=== PATIENT | male | born 1940 | race Caucasian/White ===

== ENCOUNTER 2017-07-27 11:16 | Inpatient (IN) | payer MEDICARE, OTHER ==
[~2017-07-27] VITALS: Ht 172.7 cm; Wt 89.6 kg
[~2017-07-27 11:16] MED LIST: ASPI-1264 PO; CLOP75TA35 PO; FENO48TA15 PO; MOME13HF2 IH; MONT10TA21 PO; OMEG300C2 PO; PRAV10TA38 PO
[2017-07-27 11:54] LABS: BASOPHILS # (AUTO) 0.1 X10'3 (0-0.2); BASOPHILS % (AUTO) 1.1 % (0-1); EOSINOPHILS # (AUTO) 0.3 X10'3 (0-0.9); EOSINOPHILS % (AUTO) 4.3 % (0-6); HEMATOCRIT 44.3 % (42.0-52.0); HEMOGLOBIN 15.2 g/dl (14.0-17.9); LYMPHOCYTES # (AUTO) 1.9 X10'3 (1.1-4.8); LYMPHOCYTES % (AUTO) 30.6 % (21-51); MEAN CORPUSCULAR HEMOGLOBIN 31.2 PG (27.0-31.0); MEAN CORPUSCULAR HGB CONC 34.4 % (33.0-36.5); MEAN CORPUSCULAR VOLUME 90.7 FL (78-98); MEAN PLATELET VOLUME 7.4 FL (7.4-10.4); MONOCYTES # (AUTO) 0.6 X10'3 (0-0.9); MONOCYTES % (AUTO) 9.3 % (2-12); NEUTROPHILS # (AUTO) 3.4 X10'3 (1.8-7.7); NEUTROPHILS % (AUTO) 54.7 % (42-75); PLATELET COUNT 284 X10'3 (140-440); RED BLOOD COUNT 4.89 X10'6 (4.70-6.10); RED CELL DISTRIBUTION WIDTH 13.2 % (11.5-14.5); WHITE BLOOD COUNT 6.2 X10'3 (4.5-11.0)
[2017-07-27 12:05] LABS: PARTIAL THROMBOPLASTIN TIME 27 SECONDS (22-32); PROTHROMBIN TIME 10.8 SECONDS (9.0-12.0)
[2017-07-27 12:09] LABS: ALANINE AMINOTRANSFERASE 33 U/L (12-78); ALBUMIN 3.9 G/DL (3.4-5.0); ALBUMIN/GLOBULIN RATIO 1.1 (1.1-1.5); ANION GAP 8 (8-16); ASPARTATE AMINO TRANSFERASE 20 U/L (10-37); BILIRUBIN,TOTAL 0.7 MG/DL (0.1-1.0); BLOOD UREA NITROGEN 17 MG/DL (7-18); BUN/CREATININE RATIO 12.1 (5.4-32.0); CALCIUM 9.1 MG/DL (8.5-10.1); CHLORIDE 107 MMOL/L (99-107); GLUCOSE 136 MG/DL (70-104); POTASSIUM 3.5 MMOL/L (3.5-5.1); SODIUM 143 MMOL/L (135-145); TOTAL CARBON DIOXIDE 27.8 MMOL/L (24-32); TOTAL PROTEIN 7.4 G/DL (6.4-8.2); eGFR 49 ML/MIN
[2017-07-27 12:10] LABS: ALKALINE PHOSPHATASE 76 IU/L (46-116)
[2017-07-27] MEDS ORDERED: aspirin 81mg tab.chew PO ONE (12:30)
[2017-07-27] MEDS: nitroGLYCERIN 0.4mg SUBLingual tab SL PRN ×3 (13:47→14:04)
[2017-07-27] MEDS ORDERED: ondansetron/PF 4mg/2ml inj IV PRN ×2 (13:50)
[2017-07-27] MEDS ORDERED: metoprolol tartrate 50mg tablet PO ONE (13:50)
[2017-07-27] MEDS ORDERED: acetaminophen 325mg tablet PO PRN ×2 (13:50)
[2017-07-27] MEDS ORDERED: magnesium hydroxide 30ml (MOM) UD suspension PO PRN ×2 (13:50)
[2017-07-27] MEDS ORDERED: lisinopril 10 MG tablet PO ONE (13:50)
[2017-07-27] MEDS ORDERED: hydrALAZINE 20mg/ml inj. IV ONE (13:50)
[2017-07-27] MEDS ORDERED: nitroGLYCERIN 0.4mg SUBLingual tab SL PRN (13:50)
[2017-07-27] MEDS ORDERED: aspirin 325mg tablet PO ONE (13:50)
[2017-07-27] MEDS ORDERED: mag hydrox/Alum hydrox/simeth 30ml oral suspension PO PRN ×2 (13:50)
[2017-07-27] MEDS ORDERED: heparin 10,000 units/1 ML INJ IV PRN ×2 (13:50)
[2017-07-27] MEDS ORDERED: heparin 10,000 units/1 ML INJ IV ONE ×2 (13:50)
[2017-07-27 14:53] LABS: BASOPHILS % (AUTO) 0.6 % (0-1); EOSINOPHILS # (AUTO) 0.1 X10'3 (0-0.9); EOSINOPHILS % (AUTO) 1.5 % (0-6); HEMATOCRIT 41.4 % (42.0-52.0); HEMOGLOBIN 14.2 g/dl (14.0-17.9); LYMPHOCYTES # (AUTO) 1.3 X10'3 (1.1-4.8); LYMPHOCYTES % (AUTO) 16.5 % (21-51); MEAN CORPUSCULAR HEMOGLOBIN 31.5 PG (27.0-31.0); MEAN CORPUSCULAR HGB CONC 34.4 % (33.0-36.5); MEAN CORPUSCULAR VOLUME 91.5 FL (78-98); MEAN PLATELET VOLUME 7.4 FL (7.4-10.4); MONOCYTES # (AUTO) 0.5 X10'3 (0-0.9); MONOCYTES % (AUTO) 6.6 % (2-12); NEUTROPHILS # (AUTO) 5.9 X10'3 (1.8-7.7); NEUTROPHILS % (AUTO) 74.8 % (42-75); PLATELET COUNT 284 X10'3 (140-440); RED BLOOD COUNT 4.53 X10'6 (4.70-6.10); RED CELL DISTRIBUTION WIDTH 13.3 % (11.5-14.5); WHITE BLOOD COUNT 7.9 X10'3 (4.5-11.0)
[2017-07-27 15:04] LABS: PARTIAL THROMBOPLASTIN TIME 26 SECONDS (22-32); PROTHROMBIN TIME 10.8 SECONDS (9.0-12.0)
[2017-07-27] MEDS: sodium bicarbonate (8.4%) inj. 150 MEQ in sodium chloride 0.45% 1,000 ML IV SCH (15:35)
[2017-07-27] MEDS ORDERED: nitroGLYCERIN-Tridil 50MG/D5W 250 ML IV SCH (16:05)
[2017-07-27] MEDS: tirofiban 5mg in NS 100mL 100 ML IV SCH ×2 (16:14→22:10)
[2017-07-27] MEDS ORDERED: nitroGLYCERIN-Tridil 50MG/D5W 250 ML IV PRN (17:20)
[2017-07-27 19:45] VITALS: BP 164/97
[2017-07-27] MEDS ORDERED: non-formulary drug (Mometasone/Formoterol (Dulera 100 Mcg/5 Mcg Inhaler) 2 PUFFS) IH SCH (20:00)
[2017-07-27] MEDS: OMEGA-3/DHA/EPA/FISH OIL 1 EACH CAPSULE.DR PO SCH (20:00)
[2017-07-27] MEDS: fenofibrate 48mg tablet PO SCH (20:41)
[2017-07-27] MEDS: metoprolol tartrate 25mg tablet PO SCH (20:42)
[2017-07-27 21:00] VITALS: BP 162/93
[2017-07-27] MEDS ORDERED: clopidogrel 75mg tablet PO SCH (21:00)
[2017-07-27 22:00] VITALS: BP 148/94
[2017-07-27 23:00] VITALS: BP 110/91
[2017-07-28] VITALS (20 sets, daily range): BP systolic 86–137; BP diastolic 36–76
[2017-07-28] MEDS: sodium bicarbonate (8.4%) inj. 150 MEQ in sodium chloride 0.45% 1,000 ML IV SCH (05:42)
[2017-07-28 06:35] LABS: BASOPHILS # (AUTO) 0.1 X10'3 (0-0.2); BASOPHILS % (AUTO) 1.1 % (0-1); EOSINOPHILS # (AUTO) 0.4 X10'3 (0-0.9); EOSINOPHILS % (AUTO) 5.1 % (0-6); HEMATOCRIT 39.2 % (42.0-52.0); HEMOGLOBIN 13.6 g/dl (14.0-17.9); LYMPHOCYTES # (AUTO) 2.2 X10'3 (1.1-4.8); LYMPHOCYTES % (AUTO) 26.6 % (21-51); MEAN CORPUSCULAR HEMOGLOBIN 31.6 PG (27.0-31.0); MEAN CORPUSCULAR HGB CONC 34.7 % (33.0-36.5); MEAN CORPUSCULAR VOLUME 90.9 FL (78-98); MEAN PLATELET VOLUME 7.7 FL (7.4-10.4); MONOCYTES # (AUTO) 0.7 X10'3 (0-0.9); NEUTROPHILS # (AUTO) 4.9 X10'3 (1.8-7.7); NEUTROPHILS % (AUTO) 59.2 % (42-75); PLATELET COUNT 272 X10'3 (140-440); RED BLOOD COUNT 4.31 X10'6 (4.70-6.10); WHITE BLOOD COUNT 8.3 X10'3 (4.5-11.0)
[2017-07-28] MEDS: atorvastatin 20mg tablet PO SCH (07:05)
[2017-07-28] MEDS: montelukast 10mg tablet PO SCH (07:06)
[2017-07-28] MEDS: lisinopril 10 MG tablet PO SCH (07:06)
[2017-07-28] MEDS: tirofiban 5mg in NS 100mL 100 ML IV SCH ×3 (07:07→22:30)
[2017-07-28] MEDS: aspirin 325mg tablet PO SCH (07:07)
[2017-07-28 07:11] LABS: ALANINE AMINOTRANSFERASE 31 U/L (12-78); ALBUMIN 3.3 G/DL (3.4-5.0); ALBUMIN/GLOBULIN RATIO 1.1 (1.1-1.5); ALKALINE PHOSPHATASE 62 IU/L (46-116); ANION GAP 7 (8-16); ASPARTATE AMINO TRANSFERASE 73 U/L (10-37); BILIRUBIN,TOTAL 0.5 MG/DL (0.1-1.0); BLOOD UREA NITROGEN 16 MG/DL (7-18); BUN/CREATININE RATIO 14.5 (5.4-32.0); CALCIUM 8.4 MG/DL (8.5-10.1); CHLORIDE 107 MMOL/L (99-107); GLUCOSE 100 MG/DL (70-104); POTASSIUM 3.3 MMOL/L (3.5-5.1); SODIUM 143 MMOL/L (135-145); TOTAL CARBON DIOXIDE 29.4 MMOL/L (24-32); TOTAL PROTEIN 6.3 G/DL (6.4-8.2); eGFR 65 ML/MIN
[2017-07-28] MEDS: OMEGA-3/DHA/EPA/FISH OIL 1 EACH CAPSULE.DR PO SCH ×2 (07:11→21:08)
[2017-07-28] MEDS: metoprolol tartrate 25mg tablet PO SCH ×2 (07:11→20:00)
[2017-07-28] MEDS ORDERED: heparin 1,000unit/ml 10ml vial 10 ML ONE ×2 (09:17→11:55)
[2017-07-28] MEDS ORDERED: LIDOcaine 1%/PF (10mg/ml) 5ml vial ONE (09:17)
[2017-07-28] MEDS ORDERED: iohexol 350MG/ML 100ml bottle IV ONE ×3 (09:17→11:24)
[2017-07-28] MEDS ORDERED: iohexol 350 MG/ML 50ML vial IV ONE (09:17)
[2017-07-28] MEDS ORDERED: nitroGLYCERIN-Tridil 50MG/D5W 250 ML IV ONE (09:18)
[2017-07-28] MEDS ORDERED: LIDOcaine 1% 30ml vial 30 ML ONE ×2 (10:31→11:55)
[2017-07-28] MEDS ORDERED: heparin 1,000 UNITS/NS 500ml 500 ML ONE (10:51)
[2017-07-28] MEDS ORDERED: nitroGLYCERIN 0.4mg SUBLingual tab SL ONE (11:48)
[2017-07-28] MEDS ORDERED: iohexol 350 MG/1 ML 200ml bottle ONE (11:55)
[2017-07-28] MEDS ORDERED: midazolam 2 mg/2 ml injection ONE (11:59)
[2017-07-28] MEDS ORDERED: fentaNYL/PF 50MCG/1 ML 2ML syringe ONE (11:59)
[2017-07-28] MEDS ORDERED: ondansetron/PF 4mg/2ml inj ONE (12:22)
[2017-07-28] MEDS ORDERED: DOPamine 400mg/D5W 250ml 250 ML IV ONE (13:18)
[2017-07-28] MEDS ORDERED: proCHLORperazine 10 MG/2 ml inj ONE (13:41)
[2017-07-28] MEDS ORDERED: ticagrelor 90mg tablet ONE (13:53)
[2017-07-28] MEDS: morphine 2 MG/ML inj. syringe IV PRN ×4 (14:41→23:16)
[2017-07-28 15:36] LABS: CHOL/HDL RATIO 2.3 (0.00-4.99); CHOLESTEROL 93 MG/DL (0-200); CKMB RELATIVE INDEX 12.6 RATIO (0-2.5); CREATINE KINASE 286 U/L (39-308); HDL CHOLESTEROL 40 MG/DL (35-60); LDL CHOLESTEROL 38 MG/DL (50-100); TRIGLYCERIDES 75 MG/DL (20-135)
[2017-07-28] MEDS ORDERED: acetaminophen 325mg tablet PO PRN (15:40)
[2017-07-28] MEDS ORDERED: proCHLORperazine 10 MG/2 ml inj IV PRN (15:40)
[2017-07-28] MEDS ORDERED: magnesium hydroxide 30ml (MOM) UD suspension PO PRN (15:40)
[2017-07-28] MEDS ORDERED: sodium bicarbonate (8.4%) inj. 150 MEQ in sodium chloride 0.45% 1,000 ML IV SCH (15:45)
[2017-07-28] MEDS: cyclobenzaprine 10mg tablet PO PRN (15:54)
[2017-07-28] MEDS: OXAZEpam 15mg capsule PO PRN (15:54)
[2017-07-28] MEDS ORDERED: HYDROmorphone inj. 0.5 MG/0.5 ML DISP.SYRIN IV PRN (16:35)
[2017-07-28] MEDS ORDERED: magnesium 2GM in 50ml NS 50 ML IV PRN (18:40)
[2017-07-28] MEDS ORDERED: potassium Cl 20 mEq SR tablet PO PRN (18:40)
[2017-07-28] MEDS ORDERED: magnesium Cl slow-release 64mg tablet PO PRN (18:40)
[2017-07-28] MEDS ORDERED: magnesium 4gm in 100ml NS 100 ML IV PRN (18:40)
[2017-07-28] MEDS ORDERED: potassium Cl 40MEQ/NS 500ml 500 ML IV PRN ×2 (18:40)
[2017-07-28 18:47] LABS: PARTIAL THROMBOPLASTIN TIME 145 SECONDS (22-32)
[2017-07-28] MEDS ORDERED: DOPamine 400mg/D5W 250ml 250 ML IV PRN (20:26)
[2017-07-28] MEDS ORDERED: HYDROcodone/acetaminophen 10/325mg tab PO PRN (20:30)
[2017-07-28] MEDS: ticagrelor 90mg tablet PO SCH (21:07)
[2017-07-28] MEDS: docusate sod 100mg capsule PO SCH (21:07)
[2017-07-28] MEDS: potassium Cl 20 mEq SR tablet PO PRN (21:07)
[2017-07-28] MEDS: fenofibrate 48mg tablet PO SCH (21:07)
[2017-07-28] MEDS: normal saline 1000ml 1,000 ML IV SCH (22:52)
[2017-07-29] VITALS (22 sets, daily range): BP systolic 94–145; BP diastolic 51–77
[2017-07-29] MEDS: potassium Cl 20 mEq SR tablet PO PRN (01:41)
[2017-07-29] MEDS: cyclobenzaprine 10mg tablet PO PRN (01:41)
[2017-07-29] MEDS: OXAZEpam 15mg capsule PO PRN (01:41)
[2017-07-29] MEDS: tirofiban 5mg in NS 100mL 100 ML IV SCH ×6 (02:00→20:43)
[2017-07-29] MEDS: morphine 2 MG/ML inj. syringe IV PRN ×5 (02:35→22:55)
[2017-07-29 03:14] LABS: BASOPHILS % (AUTO) 0.2 % (0-1); EOSINOPHILS # (AUTO) 0.2 X10'3 (0-0.9); EOSINOPHILS % (AUTO) 1.6 % (0-6); HEMOGLOBIN 9.7 g/dl (14.0-17.9); LYMPHOCYTES % (AUTO) 8.7 % (21-51); MEAN CORPUSCULAR HEMOGLOBIN 31.4 PG (27.0-31.0); MEAN CORPUSCULAR HGB CONC 34.7 % (33.0-36.5); MEAN CORPUSCULAR VOLUME 90.5 FL (78-98); MEAN PLATELET VOLUME 7.4 FL (7.4-10.4); MONOCYTES # (AUTO) 0.8 X10'3 (0-0.9); NEUTROPHILS # (AUTO) 9.2 X10'3 (1.8-7.7); NEUTROPHILS % (AUTO) 82.5 % (42-75); PLATELET COUNT 274 X10'3 (140-440); RED BLOOD COUNT 3.09 X10'6 (4.70-6.10); RED CELL DISTRIBUTION WIDTH 13.5 % (11.5-14.5); WHITE BLOOD COUNT 11.1 X10'3 (4.5-11.0)
[2017-07-29 04:01] LABS: ALANINE AMINOTRANSFERASE 27 U/L (12-78); ALBUMIN 2.9 G/DL (3.4-5.0); ALBUMIN/GLOBULIN RATIO 1.1 (1.1-1.5); ALKALINE PHOSPHATASE 50 IU/L (46-116); ANION GAP 9 (8-16); ASPARTATE AMINO TRANSFERASE 51 U/L (10-37); BILIRUBIN,TOTAL 0.6 MG/DL (0.1-1.0); BLOOD UREA NITROGEN 17 MG/DL (7-18); BUN/CREATININE RATIO 14.2 (5.4-32.0); CALCIUM 7.7 MG/DL (8.5-10.1); CHLORIDE 108 MMOL/L (99-107); GLUCOSE 158 MG/DL (70-104); POTASSIUM 3.6 MMOL/L (3.5-5.1); SODIUM 144 MMOL/L (135-145); TOTAL CARBON DIOXIDE 27.4 MMOL/L (24-32); TOTAL PROTEIN 5.6 G/DL (6.4-8.2); eGFR 59 ML/MIN
[2017-07-29 06:59] LABS: MAGNESIUM 1.7 MG/DL (1.5-2.4)
[2017-07-29] MEDS: metoprolol tartrate 25mg tablet PO SCH ×2 (08:00→19:31)
[2017-07-29] MEDS: lisinopril 10 MG tablet PO SCH (08:00)
[2017-07-29] MEDS: docusate sod 100mg capsule PO SCH ×2 (09:41→19:30)
[2017-07-29] MEDS: ticagrelor 90mg tablet PO SCH ×2 (09:42→19:30)
[2017-07-29] MEDS: montelukast 10mg tablet PO SCH (09:42)
[2017-07-29] MEDS: OMEGA-3/DHA/EPA/FISH OIL 1 EACH CAPSULE.DR PO SCH ×2 (09:42→19:31)
[2017-07-29] MEDS: aspirin 325mg tablet PO SCH (09:42)
[2017-07-29] MEDS: atorvastatin 20mg tablet PO SCH (09:42)
[2017-07-29 09:53] LABS: HEMATOCRIT 33.2 % (42.0-52.0); HEMOGLOBIN 11.3 g/dl (14.0-17.9); MEAN CORPUSCULAR HEMOGLOBIN 31.1 PG (27.0-31.0); MEAN CORPUSCULAR VOLUME 91.6 FL (78-98); MEAN PLATELET VOLUME 7.5 FL (7.4-10.4); PLATELET COUNT 280 X10'3 (140-440); RED BLOOD COUNT 3.62 X10'6 (4.70-6.10); RED CELL DISTRIBUTION WIDTH 14.2 % (11.5-14.5); WHITE BLOOD COUNT 16.1 X10'3 (4.5-11.0)
[2017-07-29 10:05] LABS: PARTIAL THROMBOPLASTIN TIME 23 SECONDS (22-32); PROTHROMBIN TIME 10.6 SECONDS (9.0-12.0)
[2017-07-29] MEDS: normal saline 1000ml 1,000 ML IV SCH (11:50)
[2017-07-29] MEDS ORDERED: temazepam 15mg capsule PO PRN (14:05)
[2017-07-29] MEDS: fenofibrate 48mg tablet PO SCH (19:30)
[2017-07-29] MEDS ORDERED: potassium Cl 20 mEq SR tablet PO STA (21:07)
[2017-07-29] MEDS ORDERED: furosemide 40mg/4ml inj IV ONE (21:10)
[2017-07-29] MEDS ORDERED: albuterol 2.5 MG/3 ML nebule NEB PRN (21:15)
[2017-07-29] MEDS ORDERED: furosemide 40mg/4ml inj ONE (21:18)
[2017-07-29] MEDS ORDERED: ipratropium/albuterol 3ml nebule ONE (21:23)
[2017-07-29] MEDS: ipratropium/albuterol 3ml nebule NEB PRN (21:26)
[2017-07-29] MEDS ORDERED: albuterol 2.5 MG/3 ML nebule CONTNEB PRN (21:45)
[2017-07-29] MEDS ORDERED: albuterol 2.5 MG/3 ML nebule NEB SCH (23:00)
[2017-07-30] VITALS (25 sets, daily range): BP systolic 107–154; BP diastolic 55–89
[2017-07-30] MEDS: ipratropium/albuterol 3ml nebule NEB SCH ×3 (00:03→08:03)
[2017-07-30] MEDS: morphine 2 MG/ML inj. syringe IV PRN (01:48)
[2017-07-30] MEDS: tirofiban 5mg in NS 100mL 100 ML IV SCH ×3 (02:35→08:42)
[2017-07-30 05:28] LABS: BASOPHILS % (AUTO) 0 % (0-1); EOSINOPHILS # (AUTO) 0.1 X10'3 (0-0.9); EOSINOPHILS % (AUTO) 0.9 % (0-6); HEMATOCRIT 25.1 % (42.0-52.0); HEMOGLOBIN 8.9 g/dl (14.0-17.9); LYMPHOCYTES # (AUTO) 0.8 X10'3 (1.1-4.8); LYMPHOCYTES % (AUTO) 6.3 % (21-51); MEAN CORPUSCULAR HEMOGLOBIN 31.5 PG (27.0-31.0); MEAN CORPUSCULAR HGB CONC 35.2 % (33.0-36.5); MEAN CORPUSCULAR VOLUME 89.3 FL (78-98); MEAN PLATELET VOLUME 7.8 FL (7.4-10.4); MONOCYTES # (AUTO) 1.4 X10'3 (0-0.9); MONOCYTES % (AUTO) 10.9 % (2-12); NEUTROPHILS # (AUTO) 10.8 X10'3 (1.8-7.7); NEUTROPHILS % (AUTO) 81.9 % (42-75); PLATELET COUNT 237 X10'3 (140-440); RED BLOOD COUNT 2.82 X10'6 (4.70-6.10); RED CELL DISTRIBUTION WIDTH 13.8 % (11.5-14.5); WHITE BLOOD COUNT 13.2 X10'3 (4.5-11.0)
[2017-07-30 06:43] LABS: ALBUMIN 3.3 G/DL (3.4-5.0); ANION GAP 10 (8-16); BLOOD UREA NITROGEN 29 MG/DL (7-18); BUN/CREATININE RATIO 19.3 (5.4-32.0); CALCIUM 8.8 MG/DL (8.5-10.1); CHLORIDE 108 MMOL/L (99-107); GLUCOSE 133 MG/DL (70-104); POTASSIUM 4.1 MMOL/L (3.5-5.1); SODIUM 145 MMOL/L (135-145); eGFR 46 ML/MIN
[2017-07-30] MEDS: normal saline 1000ml 1,000 ML IV SCH (06:55)
[2017-07-30] MEDS ORDERED: potassium Cl 20 mEq SR tablet PO SCH (08:00)
[2017-07-30] MEDS: aspirin 325mg tablet PO SCH (08:20)
[2017-07-30] MEDS: furosemide 40mg tablet PO SCH (08:20)
[2017-07-30] MEDS: docusate sod 100mg capsule PO SCH ×2 (08:20→19:37)
[2017-07-30] MEDS: metoprolol tartrate 25mg tablet PO SCH ×2 (08:21→19:36)
[2017-07-30] MEDS: lisinopril 10 MG tablet PO SCH (08:21)
[2017-07-30] MEDS: montelukast 10mg tablet PO SCH (08:21)
[2017-07-30] MEDS: ticagrelor 90mg tablet PO SCH ×2 (08:21→19:37)
[2017-07-30] MEDS: atorvastatin 20mg tablet PO SCH (08:21)
[2017-07-30] MEDS: OMEGA-3/DHA/EPA/FISH OIL 1 EACH CAPSULE.DR PO SCH ×2 (08:30→19:36)
[2017-07-30] MEDS ORDERED: apixaban 5mg tablet PO SCH ×2 (11:00→20:00)
[2017-07-30] MEDS ORDERED: furosemide 20 MG/2 ML vial IV ONE ×3 (11:05→16:00)
[2017-07-30] MEDS: Protein Smoothie (high protein) 240ml (8oz) cup PO SCH ×2 (13:33→18:47)
[2017-07-30] MEDS: fenofibrate 48mg tablet PO SCH (19:36)
[2017-07-30] MEDS: apixaban 5mg tablet PO SCH (19:37)
[2017-07-30 19:52] LABS: CLARITY,URINE CLEAR (Clear); COLOR,URINE YELLOW (Yellow); GLUCOSE, URINE NEGATIVE (Neg); KETONES,URINE NEGATIVE (Neg); LEUKOCYTE ESTERASE ,URINE TRACE (Neg); NITRITES, URINE NEGATIVE (Neg); OCCULT BLOOD,URINE LARGE (Neg); PROTEIN,URINE NEGATIVE (Neg)
[2017-07-30 19:54] LABS: UA COLLECTION TYPE FOLEY CATH
[2017-07-30] MEDS ORDERED: apixaban 2.5mg tablet PO SCH (20:00)
[2017-07-30 20:23] LABS: WBC,URINE 0-4 /HPF (0-4)
[2017-07-30 20:24] LABS: BACTERIA,URINE NONE SEEN /HPF (Neg); MUCUS STRANDS NONE SEEN /LPF (Neg); SQUAMOUS EPITHELIAL CELL,UR NONE SEEN /LPF (FEW)
[2017-07-30] MEDS: ipratropium/albuterol 3ml nebule NEB PRN (23:54)
[2017-07-31] MEDS: OXAZEpam 15mg capsule PO PRN (04:29)
[2017-07-31 05:37] LABS: BASOPHILS # (AUTO) 0.1 X10'3 (0-0.2); BASOPHILS % (AUTO) 0.5 % (0-1); EOSINOPHILS # (AUTO) 0.3 X10'3 (0-0.9); EOSINOPHILS % (AUTO) 2.1 % (0-6); HEMATOCRIT 27.9 % (42.0-52.0); HEMOGLOBIN 9.5 g/dl (14.0-17.9); LYMPHOCYTES # (AUTO) 1.2 X10'3 (1.1-4.8); MEAN CORPUSCULAR HEMOGLOBIN 31.4 PG (27.0-31.0); MEAN CORPUSCULAR HGB CONC 34.1 % (33.0-36.5); MEAN CORPUSCULAR VOLUME 92.1 FL (78-98); MONOCYTES # (AUTO) 1.1 X10'3 (0-0.9); MONOCYTES % (AUTO) 9.5 % (2-12); NEUTROPHILS # (AUTO) 9.1 X10'3 (1.8-7.7); NEUTROPHILS % (AUTO) 77.9 % (42-75); PLATELET COUNT 235 X10'3 (140-440); RED BLOOD COUNT 3.03 X10'6 (4.70-6.10); RED CELL DISTRIBUTION WIDTH 14.1 % (11.5-14.5); WHITE BLOOD COUNT 11.7 X10'3 (4.5-11.0)
[2017-07-31 06:00] VITALS: BP 136/66
[2017-07-31 06:15] LABS: ALANINE AMINOTRANSFERASE 34 U/L (12-78); ALBUMIN 3.4 G/DL (3.4-5.0); ALKALINE PHOSPHATASE 58 IU/L (46-116); ANION GAP 9 (8-16); ASPARTATE AMINO TRANSFERASE 54 U/L (10-37); BILIRUBIN,TOTAL 0.9 MG/DL (0.1-1.0); BLOOD UREA NITROGEN 29 MG/DL (7-18); BUN/CREATININE RATIO 20.7 (5.4-32.0); CALCIUM 8.8 MG/DL (8.5-10.1); CHLORIDE 106 MMOL/L (99-107); GLUCOSE 96 MG/DL (70-104); POTASSIUM 3.5 MMOL/L (3.5-5.1); SODIUM 142 MMOL/L (135-145); TOTAL CARBON DIOXIDE 26.6 MMOL/L (24-32); TOTAL PROTEIN 6.8 G/DL (6.4-8.2); eGFR 49 ML/MIN
[2017-07-31] MEDS: ipratropium/albuterol 3ml nebule NEB PRN (07:51)
[2017-07-31] MEDS: Protein Smoothie (high protein) 240ml (8oz) cup PO SCH ×3 (08:00→18:00)
[2017-07-31] MEDS ORDERED: furosemide 40mg/4ml inj IV ONE ×2 (08:00→18:00)
[2017-07-31] MEDS: montelukast 10mg tablet PO SCH (08:08)
[2017-07-31] MEDS: metoprolol tartrate 25mg tablet PO SCH ×2 (08:08→19:25)
[2017-07-31] MEDS: docusate sod 100mg capsule PO SCH ×2 (08:08→19:25)
[2017-07-31] MEDS: furosemide 40mg tablet PO SCH ×2 (08:09→11:01)
[2017-07-31] MEDS: ticagrelor 90mg tablet PO SCH ×2 (08:09→19:25)
[2017-07-31] MEDS: potassium Cl 20 mEq SR tablet PO SCH (08:09)
[2017-07-31] MEDS: lisinopril 10 MG tablet PO SCH (08:09)
[2017-07-31] MEDS: atorvastatin 20mg tablet PO SCH (08:09)
[2017-07-31] MEDS: OMEGA-3/DHA/EPA/FISH OIL 1 EACH CAPSULE.DR PO SCH ×2 (08:25→19:25)
[2017-07-31] MEDS: apixaban 5mg tablet PO SCH ×2 (08:26→19:25)
[2017-07-31 11:00] VITALS: BP 116/68
[2017-07-31 15:00] VITALS: BP 122/78
[2017-07-31] MEDS ORDERED: morphine 5 MG/ML injection IV PRN ×3 (16:20→16:25)
[2017-07-31] MEDS ORDERED: potassium Cl 20 mEq SR tablet PO ONE ×2 (18:00→19:15)
[2017-07-31 18:30] VITALS: BP 101/60
[2017-07-31] MEDS ORDERED: furosemide 20 MG/2 ML vial IV ONE (19:15)
[2017-07-31] MEDS: fenofibrate 48mg tablet PO SCH (20:18)
[2017-07-31 23:00] VITALS: BP 136/59
[2017-08-01 03:00] VITALS: BP 108/51
[2017-08-01 05:22] LABS: BASOPHILS # (AUTO) 0.1 X10'3 (0-0.2); BASOPHILS % (AUTO) 0.8 % (0-1); EOSINOPHILS # (AUTO) 0.3 X10'3 (0-0.9); EOSINOPHILS % (AUTO) 3.2 % (0-6); HEMATOCRIT 24.8 % (42.0-52.0); HEMOGLOBIN 8.7 g/dl (14.0-17.9); LYMPHOCYTES # (AUTO) 1.4 X10'3 (1.1-4.8); LYMPHOCYTES % (AUTO) 14.4 % (21-51); MEAN CORPUSCULAR HGB CONC 35.1 % (33.0-36.5); MEAN CORPUSCULAR VOLUME 91.3 FL (78-98); MONOCYTES # (AUTO) 0.9 X10'3 (0-0.9); MONOCYTES % (AUTO) 9.2 % (2-12); NEUTROPHILS # (AUTO) 6.8 X10'3 (1.8-7.7); NEUTROPHILS % (AUTO) 72.4 % (42-75); PLATELET COUNT 247 X10'3 (140-440); RED BLOOD COUNT 2.72 X10'6 (4.70-6.10); RED CELL DISTRIBUTION WIDTH 13.8 % (11.5-14.5); WHITE BLOOD COUNT 9.4 X10'3 (4.5-11.0)
[2017-08-01 07:03] VITALS: BP 91/61
[2017-08-01] MEDS: lisinopril 10 MG tablet PO SCH (07:47)
[2017-08-01] MEDS: metoprolol tartrate 25mg tablet PO SCH (07:47)
[2017-08-01] MEDS: apixaban 5mg tablet PO SCH (07:48)
[2017-08-01] MEDS: OMEGA-3/DHA/EPA/FISH OIL 1 EACH CAPSULE.DR PO SCH (07:48)
[2017-08-01] MEDS: docusate sod 100mg capsule PO SCH (07:48)
[2017-08-01] MEDS: potassium Cl 20 mEq SR tablet PO SCH (07:48)
[2017-08-01] MEDS: ticagrelor 90mg tablet PO SCH (07:48)
[2017-08-01] MEDS: montelukast 10mg tablet PO SCH (07:48)
[2017-08-01] MEDS: atorvastatin 20mg tablet PO SCH (07:48)
[2017-08-01] MEDS: Protein Smoothie (high protein) 240ml (8oz) cup PO SCH ×2 (07:51→13:02)
[2017-08-01 07:56] VITALS: BP 115/73
[2017-08-01] MEDS ORDERED: furosemide 40mg/4ml inj IV SCH (08:00)
[2017-08-01] MEDS: ipratropium/albuterol 3ml nebule NEB PRN (08:28)
[2017-08-01 11:00] VITALS: BP 110/56
[2017-08-01] MEDS ORDERED: TICA90TA PO (13:11)
[2017-08-01] MEDS ORDERED: FURO40TA4 PO (13:11)
[2017-08-01] MEDS ORDERED: LISI10TA4 PO (13:11)
[2017-08-01] MEDS ORDERED: ATOR20TA66 PO (13:11)
[2017-08-01] MEDS ORDERED: METO25TA6 PO (13:11)
[2017-08-01] MEDS ORDERED: APIX5TAB3 PO (13:11)
[2017-08-02] MEDS ORDERED: SPIR25TA3 PO (15:41)
== END 2017-08-01 14:49 | disposition home health service (06) | DRG 246 ==
LOC: ER 11:16 → ED HOLD 13:49 → EDBEDREQ 17:32 → PCU 3S 19:10 → CICU 2S 07-28 10:11 → PCU 3S 07-30 23:45
PROVIDERS: ADMIT Legal Medicine; ATTEND Legal Medicine
PROC: 027037Z Dilation of Coronary Artery, One Artery with Four or More Drug-eluting Intraluminal Devices, Percutaneous Approach (ICD-10-PCS; principal; 2017-07-28)
PROC: 02C03ZZ Extirpation of Matter from Coronary Artery, One Artery, Percutaneous Approach (ICD-10-PCS; 2017-07-28)
PROC: 4A023N7 Measurement of Cardiac Sampling and Pressure, Left Heart, Percutaneous Approach (ICD-10-PCS; 2017-07-28)
PROC: B2111ZZ Fluoroscopy of Multiple Coronary Arteries using Low Osmolar Contrast (ICD-10-PCS; 2017-07-28)
PROC: B2151ZZ Fluoroscopy of Left Heart using Low Osmolar Contrast (ICD-10-PCS; 2017-07-28)
PROC: B2131ZZ Fluoroscopy of Multiple Coronary Artery Bypass Grafts using Low Osmolar Contrast (ICD-10-PCS; 2017-07-28)
DX: T82.868A Thrombosis due to vascular prosthetic devices, implants and grafts, initial encounter (principal); I21.4 Non-ST elevation (NSTEMI) myocardial infarction; I50.31 Acute diastolic (congestive) heart failure; N17.9 Acute kidney failure, unspecified; I13.0 Hypertensive heart and chronic kidney disease with heart failure and stage 1 through stage 4 chronic kidney disease, or unspecified chronic kidney disease; I25.110 Atherosclerotic heart disease of native coronary artery with unstable angina pectoris; I48.0 Paroxysmal atrial fibrillation; I49.5 Sick sinus syndrome; E78.5 Hyperlipidemia, unspecified; I35.0 Nonrheumatic aortic (valve) stenosis; T50.8X5A Adverse effect of diagnostic agents, initial encounter; R59.1 Generalized enlarged lymph nodes; J45.909 Unspecified asthma, uncomplicated; N18.9 Chronic kidney disease, unspecified; Z95.1 Presence of aortocoronary bypass graft; Z95.5 Presence of coronary angioplasty implant and graft; Z95.0 Presence of cardiac pacemaker; Z88.1 Allergy status to other antibiotic agents; Z88.2 Allergy status to sulfonamides; Z88.8 Allergy status to other drugs, medicaments and biological substances; Z87.891 Personal history of nicotine dependence; Z82.3 Family history of stroke; Z82.49 Family history of ischemic heart disease and other diseases of the circulatory system; Y92.89 Other specified places as the place of occurrence of the external cause; Y83.2 Surgical operation with anastomosis, bypass or graft as the cause of abnormal reaction of the patient, or of later complication, without mention of misadventure at the time of the procedure
CPT/HCPCS: 93459; 99285; C9600; 36415; 71045; 71046; 80048; 80053; 80061; 81001; 82550; 82553; 83735; 83880; 84484; 85025; 85027; 85347; 85610; 85730; 87040; 87070; 87088; 93005; 94640; 94760; 97110; 97116; 97162; 97530; 99152; 99153; A4315; A4620; A6213; A6257; A6258; A6449; C1725; C1751; C1757; C1758; C1769; C1874; J0780; J1265; J1644; J1940; J2001; J2250; J2270; J2405; J3010; J3246; J3490; J7030; Q9967

== ENCOUNTER 2017-08-02 14:03 | Emergency (ER) | payer MEDICARE, OTHER ==
[~2017-08-02] VITALS: Ht 170.2 cm; Wt 84.0 kg
[~2017-08-02 14:03] MED LIST changes: +APIX5TAB3 PO; +ATOR20TA66 PO; -CLOP75TA35 PO; +FURO40TA4 PO; +LISI10TA4 PO; +METO25TA6 PO; -MOME13HF2 IH; -OMEG300C2 PO; +TICA90TA PO
[2017-08-02 14:58] LABS: BASOPHILS # (AUTO) 0.1 X10'3 (0-0.2); BASOPHILS % (AUTO) 0.6 % (0-1); EOSINOPHILS # (AUTO) 0.4 X10'3 (0-0.9); EOSINOPHILS % (AUTO) 4.4 % (0-6); HEMATOCRIT 30.8 % (42.0-52.0); HEMOGLOBIN 10.5 g/dl (14.0-17.9); LYMPHOCYTES # (AUTO) 1.4 X10'3 (1.1-4.8); LYMPHOCYTES % (AUTO) 14.4 % (21-51); MEAN CORPUSCULAR HEMOGLOBIN 31.5 PG (27.0-31.0); MEAN CORPUSCULAR HGB CONC 34.3 % (33.0-36.5); MONOCYTES % (AUTO) 10.8 % (2-12); NEUTROPHILS # (AUTO) 6.6 X10'3 (1.8-7.7); NEUTROPHILS % (AUTO) 69.8 % (42-75); PLATELET COUNT 375 X10'3 (140-440); RED BLOOD COUNT 3.34 X10'6 (4.70-6.10); RED CELL DISTRIBUTION WIDTH 13.9 % (11.5-14.5); WHITE BLOOD COUNT 9.4 X10'3 (4.5-11.0)
[2017-08-02 15:10] LABS: INR 1.2 INR; PARTIAL THROMBOPLASTIN TIME 28 SECONDS (22-32); PROTHROMBIN TIME 11.9 SECONDS (9.0-12.0)
[2017-08-02 15:23] LABS: ALANINE AMINOTRANSFERASE 39 U/L (12-78); ALBUMIN 3.3 G/DL (3.4-5.0); ALBUMIN/GLOBULIN RATIO 0.8 (1.1-1.5); ALKALINE PHOSPHATASE 67 IU/L (46-116); ANION GAP 9 (8-16); ASPARTATE AMINO TRANSFERASE 34 U/L (10-37); BILIRUBIN,TOTAL 1.1 MG/DL (0.1-1.0); BLOOD UREA NITROGEN 30 MG/DL (7-18); BUN/CREATININE RATIO 21.4 (5.4-32.0); CALCIUM 9.4 MG/DL (8.5-10.1); CHLORIDE 108 MMOL/L (99-107); GLUCOSE 102 MG/DL (70-104); POTASSIUM 3.8 MMOL/L (3.5-5.1); SODIUM 145 MMOL/L (135-145); TOTAL CARBON DIOXIDE 27.7 MMOL/L (24-32); TOTAL PROTEIN 7.2 G/DL (6.4-8.2); eGFR 49 ML/MIN
[2017-08-02] MEDS ORDERED: furosemide 20MG tablet PO ONE (15:40)
[2017-08-02] MEDS ORDERED: SPIR25TA3 PO (15:41)
[2017-08-02 17:44] VITALS: BP 135/72
== END 2017-08-02 17:48 | disposition home or self-care (01) ==
LOC: ER 14:04
DX: I25.10 Atherosclerotic heart disease of native coronary artery without angina pectoris (principal); I11.0 Hypertensive heart disease with heart failure; I50.33 Acute on chronic diastolic (congestive) heart failure; E78.00 Pure hypercholesterolemia, unspecified; Z95.1 Presence of aortocoronary bypass graft; Z88.1 Allergy status to other antibiotic agents; Z88.2 Allergy status to sulfonamides; Z88.8 Allergy status to other drugs, medicaments and biological substances; Z79.82 Long term (current) use of aspirin
CPT/HCPCS: 36415; 71046; 80053; 83880; 84484; 85025; 85610; 85730; 93005; 99285